=== PATIENT | male | born 1950 | race Caucasian/White ===

== ENCOUNTER 2018-04-20 08:08 | Day surgery (SDC) | payer OTHER ==
[~2018-04-20] VITALS: Ht 180.3 cm; Wt 72.6 kg
[~2018-04-20 08:08] MED LIST: ALPR.5 PO; ATOR10 PO; TERA5 PO
--- NOTE | 2018-04-20 08:48 | NUR ---
Ambulatory in Day Surgery. History, Chart, Medications and Allergies reviewed before start of procedure. Lungs clear T/O to Auscultation. Patient confirms NPO status and agrees with scheduled surgery. Pre-Op teaching done. Pt verbalizes understanding. Patient States Post-Procedure ride home has been arranged.
--- NOTE | 2018-04-20 08:51 | NUR ---
04/20/18 0851 Kraig Meier PATIENT DETERMINED TO BE ASA APPROPRIATE FOR PROPOFOL SEDATION PRIOR TO START OF PROCEDURE BY . 3-LEAD EKG REVIEWED WITH PHYSICIAN PRIOR TO START OF PROCEDURE.PATIENT CONFIRMS NPO STATUS AND AGREES WITH SCHEDULED PROCEDURE.History, Chart, Medications and Allergies reviewed before start of procedure.MONITOR INTACT WITH CONTINUOUS PULSE OXIMETRY AND INTERMITTENT BP.O2 VIA N/C INTACT THROUGHOUT SEDATION/PROCEDURE.HURRICAINE SPRAY TO OROPHARYX.Bite Block Placed
--- NOTE | 2018-04-20 09:35 | NUR ---
Discharge instructions reviewed with patient. Patient verbalizes understanding. Copy given to patient to take home. Discharged via wheelchair to private car for ride home.
== END 2018-04-20 09:34 | disposition home or self-care (01) ==
LOC: ORSCMMR 08:08 → ORD 09:00 → ORSCMMR 09:00
PROVIDERS: Internal Medicine Gastroenterology
PROC: 0DB48ZX Excision of Esophagogastric Junction, Via Natural or Artificial Opening Endoscopic, Diagnostic (ICD-10-PCS; principal; 2018-04-20 09:00)
PROC: 0DB68ZX Excision of Stomach, Via Natural or Artificial Opening Endoscopic, Diagnostic (ICD-10-PCS; principal; 2018-04-20 09:00)
DX: R13.14 Dysphagia, pharyngoesophageal phase (principal); B37.81 Candidal esophagitis; E78.00 Pure hypercholesterolemia, unspecified; F41.9 Anxiety disorder, unspecified; I86.4 Gastric varices; K31.9 Disease of stomach and duodenum, unspecified; Z79.899 Other long term (current) drug therapy
CPT/HCPCS: 88305; 88342; J2250; J7120

== ENCOUNTER 2018-07-18 05:55 | Day surgery (SDC) | payer OTHER ==
[~2018-07-18] VITALS: Ht 180.3 cm; Wt 78.5 kg
[~2018-07-18 05:55] MED LIST changes: +ZOLP10 PO
--- NOTE | 2018-07-18 08:34 | NUR ---
LATE ENTRY: 0630 Ambulatory in Day Surgery. Surgical site prepped with 2% Chlorhexidine cloth wipe. History, Chart, Medications and Allergies reviewed before start of procedure. Lungs clear T/O to Auscultation. Patient confirms NPO status and agrees with scheduled surgery. Pre-Op teaching done. Pt verbalizes understanding. Patient States Post-Procedure ride home has been arranged. Patient reports completing Chlorhexadine shower X2 prior to admission to hospital.
--- NOTE | 2018-07-18 10:01 | NUR ---
"DAY SURGERY RN | DISCHARGE VSS. A/O. No issues. Dishcarge instructions given to patient with family present. RX given to patient. Steady on feet. Taken in wheelchair to front entrance by this RN. is ride home. All belonings returned to patient."
== END 2018-07-18 22:44 | disposition home or self-care (01) ==
LOC: ORSCMMR 05:55 → ORD 07:30 → ORSCMMR 22:44
PROVIDERS: Surgery
PROC: 0YU50JZ Supplement Right Inguinal Region with Synthetic Substitute, Open Approach (ICD-10-PCS; principal; 2018-07-18 07:30)
DX: K40.90 Unilateral inguinal hernia, without obstruction or gangrene, not specified as recurrent (principal); Z87.891 Personal history of nicotine dependence; Z79.899 Other long term (current) drug therapy
CPT/HCPCS: A9270-GY; C1781; J0690; J1100; J1885; J2250; J2370; J2405; J2704; J3010; J7120

== ENCOUNTER → 2020-06-11 | Outpatient (CLI) | payer OTHER | END | disposition home or self-care (01) | LOC: LAB SHORT 12:00 → LAB 12:00 | DX: B35.0 Tinea barbae and tinea capitis (principal) | CPT/HCPCS: 87102 ==

== ENCOUNTER → 2020-12-25 | Outpatient (CLI) | payer OTHER | END | disposition home or self-care (01) | LOC: LAB SHORT 07:35 | DX: C44.329 Squamous cell carcinoma of skin of other parts of face (principal) | CPT/HCPCS: 88305 ==